=== PATIENT | female | born 1935 | race Caucasian/White ===

== ENCOUNTER 2023-12-25 15:05 | Observation (INO) | payer OTHER ==
--- OUTSIDE RECORDS SUMMARY | 2023-12-25 15:07 | XMS REPORT | Continuity of Care Document ---
Author Name Unknown Address [address] [facility] [address] [place] [address] [facility] Address [address] [facility] [place] [address] [place] [address] Care Team Providers Care Accountancy Professor Name Role Phone Pcp, Patient Does Not Have A Primary Care Physic brandon Nurse, Adc Pob Immunization Attending Clinician Unavailable Jerman Weaver DO Attending Clinician [phone] Social History Social Habit Start Date Stop Date Quantity Comments Source Sex Assigned At 1935 00:00:00 1935 00:00:00 [facility] Procedures Procedure Date / Time Performed Performing Clinicia n Source SARS-COV-2 COVID-19 VACCINE,0.3ML,IM (PFIZER) 2021-03-12 13:59:49 Doctor Unassigned, [place] [facility] Plan of Care Planned Activity Planned Date Details Comments Source Future Scheduled Test 2021-07-07 00:00:00 INFLUENZA VACCINE (Season Ended) [code = INFLUENZA VACCINE (Season Ended)] [facility] Future Scheduled Test 1999 00:00:00 Medicare Annual Wellness Visit (procedure) [code = 033905597033340] [facility] Future Scheduled Test 1999 00:00:00 Screening for osteoporosis (procedure) [code = 042106833] [facility] Future Scheduled Test 1999 00:00:00 PNEUMOCOCCAL VACCINES 65+ (1 of 1 - PPSV23) [code = PNEUMOCOCCAL VACCINES 65+ (1 of 1 - PPSV23)] [facility] Future Scheduled Test 1984 00:00:00 Zoster Recombinant Vaccine (SHINGRIX) (1 of 2) [code = Zoster Recombinant Vaccine (SHINGRIX) (1 of 2)] [facility] Future Scheduled Test 1953 00:00:00 DTaP,Tdap,and Td Vaccines (1 - Tdap) [code = DTaP,Tdap,and Td Vaccines (1 - Tdap)] [facility] Future Scheduled Test 1950 00:00:00 SARS-CoV-2 (COVID-19) Vaccine (1) [code = SARS-CoV-2 (COVID-19) Vaccine (1)] [facility] Future Scheduled Test 1946 00:00:00 Depression screening (procedure) [code = 649863815] [facility]
--- NOTE | 2023-12-25 16:13 | ER ---
Nurse's Notes [facility] Name: Milady Fournier Age: 88 yrs Sex: Female : 1935 Arrival Date: 12/25/2023 Time: 15:05 Bed 8 Private MD: Heriberto Nguyen V Diagnosis: Repeated falls;Fall on same level, unspecified;Pain in right hip-INTRACTABLE;Low back pain-INTRACTABLE;Other injury of muscle, fascia and tendon of lower back Presentation: 12/25 15:11 Chief complaint: Direct admit per Dr Nguyen. ph 15:11 Method Of Arrival: Ambulatory ph 15:36 Coronavirus screen: Vaccine status: Patient reports receiving the 2nd dose of the covid ph vaccine. Ebola Screen: No symptoms or risks identified at this time. Initial Sepsis Screen: Does the patient meet any 2 criteria? No. Patient's initial sepsis screen is negative. Does the patient have a suspected source of infection? No. Patient's initial sepsis screen is negative. Risk Assessment: Do you want to hurt yourself or someone else? Patient reports no desire to harm self or others. Onset of symptoms was December 25, 2023. 15:36 Acuity: CHUCK 3 ph Triage Assessment: 15:53 General: Appears in no apparent distress. Behavior is appropriate for age. General: bp SENT BY DR NGUYEN FOR MRI AFTER REPEATED FALLS OVER LAST MONTH. Pain: Complains of pain in left hip. Historical: - Allergies: 15:14 No Known Allergies; ph - Immunization history:: Adult Immunizations up to date. - Social history:: Smoking status: Patient denies any tobacco usage or history of. - Family history:: not pertinent. Screenin:55 [facility] ED Fall Risk Assessment (Adult) History of falling in the last 3 months, bp including since admission Yes- fall prone (multiple falls) (3 pts) Confusion or Disorientation No (0 pts) Intoxicated or Sedated No (0 pts) Impaired Gait Yes (1 pt) Mobility Assist Device Used Yes (1 pt) Altered Elimination No (0 pt) Score/Fall Risk Level 3 or more points = High Risk Oriented to surroundings. Abuse screen: Denies threats or abuse. Denies injuries from another. Nutritional screening: No deficits noted. Tuberculosis screening: No symptoms or risk factors identified. Assessment: 15:55 General: SEE TRIAGE NOTE. bp 17:41 Reassessment: SEE [facility] FOR [facility]IENT CARE. db Vital Signs: 15:14 BP 189 / 89; Pulse 89; Resp 18; Temp 97.6; Pulse Ox 100% ; Weight 55.79 kg; Height 5 ph ft. 4 in. ; 15:14 Body Mass Index 21.11 (55.79 kg, 162.56 cm) ph ED Course: 15:08 Patient arrived in ED. rg4 15:08 Heriberto Nguyen MD is Private Physician. rg4 15:13 Arm band placed on right wrist. ph 15:34 Eleazar Hicks MD is Attending Physician. david 15:36 Triage completed. ph 15:51 Tho Gaming, RN is Primary Nurse. bp 15:55 Patient has correct armband on for positive identification. bp 16:11 Heriberto Nguyen MD is Hospitalizing Provider. david 17:15 Inserted saline lock: 22 gauge in right antecubital area, using aseptic technique. db Blood collected. 21:23 Provided Education on: need for admit. [facility] 21:23 No provider procedures requiring assistance completed. Patient admitted, IV remains in [facility] place. Administered Medications: No medications were administered Medication: 21:23 VIS not applicable for this client. [facility] Outcome: 16:12 Decision to Hospitalize by Provider. [facility] 21:23 Admitted to Tele accompanied by [facility], via wheelchair, room 401, jw 21:23 Condition: stable 21:23 Instructed on the need for admit, Demonstrated understanding of instructions, 21:45 Patient left the ED. [facility] Signatures: Eleazar Hicks MD MD cha Hall, Patricia, RN RN Mine Gan rg4 Tho Gaming, Sandra Viveros RN, RN RN [facility] Avril Collins RN RN db
--- NOTE | 2023-12-25 16:14 | EDPHYS ---
Physician Documentation [facility] Name: Milady Fournier Age: 88 yrs Sex: Female : 1935 Arrival Date: 12/25/2023 Time: 15:05 Bed 8 Private MD: Heriberto Nguyen V ED Physician Eleazar Hicks HPI: 12/25 16:00 This 88 yrs old Female presents to ER via Ambulatory with complaints of david Direct Admit / Private MD. 16:00 The patient or guardian reports decreased range of motion, an injury, pain, swelling. david that occurred at home, sustained from a fall, There is no obvious deformity, The patient is able to ambulate with assistance. The patient is able to bear their full body weight. There is no radiation of the patient's discomfort. The complaints affect the right leg. Onset: The symptoms/episode began/occurred 30 day(s) ago. Modifying factors: The symptoms are alleviated by remaining still, the symptoms are aggravated by any movement, external rotation, weight bearing. The patient presents with pain that is acute, and decreased range of motion. Historical: - Allergies: 15:14 No Known Allergies; ph - Immunization history:: Adult Immunizations up to date. - Social history:: Smoking status: Patient denies any tobacco usage or history of. - Family history:: not pertinent. ROS: 16:00 Constitutional: Negative for fever, chills, and weight loss, Eyes: Negative for injury, david pain, redness, and discharge, ENT: Negative for injury, pain, and discharge, Neck: Negative for injury, pain, and swelling, Cardiovascular: Negative for chest pain, palpitations, and edema, Respiratory: Negative for shortness of breath, cough, wheezing, and pleuritic chest pain, Abdomen/GI: Negative for abdominal pain, nausea, vomiting, diarrhea, and constipation, : Negative for injury, bleeding, discharge, and swelling, Skin: Negative for injury, rash, and discoloration, Neuro: Negative for headache, weakness, numbness, tingling, and seizure, Psych: Negative for depression, anxiety, suicide ideation, homicidal ideation, and hallucinations, Allergy/Immunology: Negative for hives, rash, and allergies, Endocrine: Negative for neck swelling, polydipsia, polyuria, polyphagia, and marked weight changes, Hematologic/Lymphatic: Negative for swollen nodes, abnormal bleeding, and unusual bruising, 16:00 Back: Positive for injury or acute deformity, decreased range of motion, of the right low back, 16:00 MS/extremity: Positive for injury or acute deformity, contusion, decreased range of motion, pain, of the right hip and right upper thigh, Exam: 16:06 Constitutional: This is a well developed, well nourished patient who is awake, alert, david and in no acute distress. Head/Face: Normocephalic, atraumatic. Eyes: Pupils equal round and reactive to light, extra-ocular motions intact. Lids and lashes normal. Conjunctiva and sclera are non-icteric and not injected. Cornea within normal limits. Periorbital areas with no swelling, redness, or edema. ENT: Nares patent. No nasal discharge, no septal abnormalities noted. Tympanic membranes are normal and external auditory canals are clear. Oropharynx with no redness, swelling, or masses, exudates, or evidence of obstruction, uvula midline. Mucous membranes moist. Neck: Trachea midline, no thyromegaly or masses palpated, and no cervical lymphadenopathy. Supple, full range of motion without nuchal rigidity, or vertebral point tenderness. No Meningismus. Chest/axilla: Normal chest wall appearance and motion. Nontender with no deformity. No lesions are appreciated. Cardiovascular: Regular rate and rhythm with a normal S1 and S2. No gallops, murmurs, or rubs. Normal PMI, no JVD. No pulse deficits. Respiratory: Lungs have equal breath sounds bilaterally, clear to auscultation and percussion. No rales, rhonchi or wheezes noted. No increased work of breathing, no retractions or nasal flaring. Abdomen/GI: Soft, non-tender, with normal bowel sounds. No distension or tympany. No guarding or rebound. No evidence of tenderness throughout. Female : Normal external genitalia. Skin: Warm, dry with normal turgor. Normal color with no rashes, no lesions, and no evidence of cellulitis. Neuro: Awake and alert, GCS 15, oriented to person, place, time, and situation. Cranial nerves II-XII grossly intact. Motor strength 5/5 in all extremities. Sensory grossly intact. Cerebellar exam normal. Normal gait. Psych: Awake, alert, with orientation to person, place and time. Behavior, mood, and affect are within normal limits. 16:06 Back: pain, that is moderate, of the lumbar area and right low back, ROM is painful, with all movement, normal spinal alignment noted, CVA tenderness, is absent, vertebral tenderness, is appreciated at L2, L3, L4, L5 and sacrum, muscle spasm, is appreciated in the left low back, left mid back, right mid back and right low back, 16:06 Musculoskeletal/extremity: Extremities: grossly normal except: contusion, decreased ROM, ecchymosis, pain, swelling, ROM: limited active range of motion, in the right hip and right upper thigh, limited passive range of motion, Circulation is intact in all extremities. Sensation intact. Compartment Syndrome exam of affected extremity: is normal. Weight bearing: can bear weight with assistance only, uses walker, DVT Exam: negative Homans' sign noted on exam, no appreciated bluish discoloration, no erythema, no increased warmth, pain, swelling, tenderness, 16:06 Neuro: Orientation: is normal, appropriate for stated age, no acute changes, Mentation: is normal, appropriate for stated age, no acute changes, Memory: is normal, appropriate for stated age, no acute changes, Cranial nerves: grossly normal, Sensation: is normal, no obvious gross deficits, appropriate no acute changes, Gait: not tested. seizure activity, is not displayed by the patient, Vital Signs: 15:14 BP 189 / 89; Pulse 89; Resp 18; Temp 97.6; Pulse Ox 100% ; Weight 55.79 kg; Height 5 ph ft. 4 in. ; 15:14 Body Mass Index 21.11 (55.79 kg, 162.56 cm) ph MDM: 15:34 Patient medically screened. david 16:08 Differential diagnosis: hip fracture, intertrochanteric fracture, femoral neck david fracture, femoral shaft fracture, bursitis, arthritis, strain. Data reviewed: vital signs, nurses notes. Consideration of Admission/Observation Patient was admitted/placed on observation. Escalation of care including admission/observation considered. I considered the following discharge prescriptions or medication management in the emergency department Medications were administered in the Emergency Department. See MAR. Test considered but Not performed: EKG: NO EKG. Historians other than the Patient: PT WELL INFORMED. Care significantly affected by the following chronic conditions: Hypertension. Counseling: I had a detailed discussion with the patient and/or guardian regarding the historical points, exam findings, and any diagnostic results supporting the discharge/admit diagnosis, the need for further work-up and treatment in the hospital. 12/25 18:05 Order name: Basic Metabolic Panel EDMS 12/25 18:05 Order name: Liver (Hepatic) Function EDMS 12/25 18:05 Order name: Phosphorus EDMS 12/25 18:05 Order name: Magnesium EDMS 12/25 18:05 Order name: Thyroid Stimulating Hormone EDMS 12/25 18:05 Order name: Vitamin B12 Level EDMS 12/25 18:08 Order name: CBC with Automated Diff EDMS 12/25 18:19 Order name: Vitamin D, 25 (OH), TOTAL EDMS Administered Medications: No medications were administered Disposition Summary: 12/25/23 16:12 Hospitalization Ordered Notes: Hospitalization Status: Observation david Provider: Heriberto Nguyen cha Condition: Fair david Problem: new david Symptoms: are unchanged david Bed/Room Type: Standard david Location: Telemetry/MedSurg (observation)(12/25/23 21:08) as6 Room Assignment: 401(12/25/23 21:08) as6 Diagnosis - Repeated falls david - Fall on same level, unspecified david - Pain in right hip - INTRACTABLE david - Low back pain - INTRACTABLE david - Other injury of muscle, fascia and tendon of lower back david Forms: - Medication Reconciliation Form david - SBAR form david - Leadership Thank You Letter david Signatures: Sharmaine Beal Corey, MD MD cha Hall, Patricia RN RN Tho Gaming RN RN bp Slawson, Ashby, RN RN as6 Corrections: (The following items were deleted from the chart) 17:37 16:12 Telemetry/MedSurg (observation) david bd 17:37 16:12 david bd 21:08 17:37 [facility] ER HOLD bd as6 21:08 17:37 ERHOLD- bd as6 21:08 21:08 as6 as6
[2023-12-25] MEDS ORDERED: ACETAMINOPHEN 325 MG TABLET ONE (16:58)
[2023-12-25] MEDS: ACETAMINOPHEN 325 MG TABLET PO PRN (17:00)
[2023-12-25] MEDS: NA CHLORIDE 0.9% 1,000 ML IV SCH (17:00)
[2023-12-25] MEDS ORDERED: LOPERAMIDE HCL 2 MG CAPSULE PO PRN (17:02)
[2023-12-25] MEDS ORDERED: POLYETHYL GLY 3350 17 GM/DOSE PO PRN (17:02)
[2023-12-25] MEDS ORDERED: DIPHENHYDRAMINE 25 MG TAB/CAP PO PRN (17:02)
[2023-12-25] MEDS ORDERED: ONDANSETRON 4 MG/2 ML VIAL IV PRN (17:04)
[2023-12-25] MEDS: HYDROMORPHONE HCL 1 MG/ML INJ IV PRN (17:30)
[2023-12-25 17:36] LABS: Absolute Lymphocytes (CBC) 1.5 K/uL (0.7-4.9); Hematocrit 30.7 % (36.0-45.0); Lymphocytes % 17.6 % (15.3-44.8); MCV 91.5 fL (80-100); MPV 6.4 fL (7.6-11.3); Platelets 315 thou/uL (152-406); RBC Red Blood Cell Count 3.36 M/uL (3.86-4.86)
[2023-12-25 17:50] VITALS: BMI 21.1
[2023-12-25] MEDS: ENOXAPARIN 40 MG/0.4 ML SQ SCH (18:00)
[2023-12-25 18:05] LABS: Albumin 3.7 g/dL (3.4-5.0); Bilirubin Direct 0.3 mg/dL (0-0.2); Bilirubin Indirect, Calculated 0.4 mg/dL (0.2-0.8); Bilirubin Total 0.7 mg/dL (0.2-1.0); Magnesium 1.7 mg/dL (1.6-2.4); Phosphorus 2.9 mg/dL (2.5-4.9); Potassium 3.8 mEq/L (3.5-5.1); Protein, Total 7.6 g/dL (6.4-8.2); Thyroid Stimulating Hormone 2.59 uIU/mL (0.358-3.740)
[2023-12-25] MEDS ORDERED: PNEUMOCOCCAL VACCINE 0.5 ML IMVAC ONE (21:00)
[2023-12-25] MEDS ORDERED: INFLUENZA VACCINE (for 6+ mo) 0.5 ML DOSE IMVAC ONE (21:00)
--- NOTE | 2023-12-25 22:07 | RAD REPORT ---
EXAM DESCRIPTION: RAD - Chest Pa And Lat (2 Views) - 12/25/2023 5:39 pm CLINICAL HISTORY: back pain COMPARISON: No comparisons TECHNIQUE: PA and lateral views of the chest were obtained. FINDINGS: The lungs are clear. Heart size is normal and central vasculature is within normal limits. No pleural effusion or pneumothorax seen. No acute bony finding noted. IMPRESSION: No acute cardiopulmonary process.
[2023-12-25] MEDS: LOSARTAN POTASSIUM 50 MG TABLET PO SCH (22:19)
[2023-12-26 06:56] LABS: Absolute Lymphocytes (CBC) 1.2 K/uL (0.7-4.9); Lymphocytes % 27.9 % (15.3-44.8); MCV 92.6 fL (80-100); MPV 6.5 fL (7.6-11.3); Platelets 284 thou/uL (152-406); RBC Red Blood Cell Count 3.03 M/uL (3.86-4.86)
[2023-12-26 07:16] LABS: Magnesium 1.7 mg/dL (1.6-2.4); Potassium 4.1 mEq/L (3.5-5.1)
[2023-12-26] MEDS: MAGNESIUM SULFATE 1 gm IVPB 1 GM/100 ML BAG IV ONE (08:27)
[2023-12-26 10:24] VITALS: O2SAT 99
[2023-12-26] MEDS: FAMOTIDINE 20 MG TAB PO SCH (11:33)
--- NOTE | 2023-12-26 11:33 | RAD REPORT ---
EXAM DESCRIPTION: MRI - Lumbar Spine Wo Con- 12/26/2023 11:15 am CLINICAL HISTORY: back pain COMPARISON: No comparisons FINDINGS: Vertebral body heights are within normal limits. Diffuse disc desiccation. Mild edema noted right sacral ala. The conus medullaris terminates at a normal level. No thickening of the cauda equina or clumping of n erve roots seen. L1-2 level: Mild posterior disc bulge is present asymmetric to the right. Mild facet and ligamentum f lavum hypertrophy is seen. L2-3 level: Degenerative disc disease with small endplate osteophytes and mild to moderate posterior disc bulge asymmetric to the right. Moderate facet and ligamentum flavum hypertrophy is seen. Mild na rrowing of both lateral recesses. L3-4 level: Broad-based posterior disc bulge with small endplate osteophyte present. Findings are asy mmetric to the left foraminal region. Mild facet and ligament flavum hypertrophy. Left lateral recess is mildly attenuated. No significant exit foraminal stenosis. L4-5 level: Posterior disc bulge is present with [id number] facet and ligamentum flavum hypertr ophy. Mild narrowing of the left exit foramen. L5-S1 level: No significant findings. 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
--- NOTE | 2023-12-26 14:01 | RAD REPORT ---
EXAM DESCRIPTION: MRI - Hip Right Wo Cont - 12/26/2023 10:52 am CLINICAL HISTORY: hip injury Multiple falls, pain COMPARISON: No comparisons FINDINGS: Abnormal marrow signal is seen in the right sacral ala suspicious for insufficiency fracture. A small amount of mid edema is also present in the left sacral ala which may indicate additional insufficiency fracture, but less severe. There is diminished marrow signal seen in the inferior pubic ramus on the right extending to the pubic symphysis as well as the superior pubic ramus on the right near the junction with the acetabulum. There is associated cortical offset of the inferior pubic ramus, on the right pubic symphysis and a small portion of the right superior pubic ramus near the junction with the anterior acetabulum. This is compatible with fracture. There is moderate muscle edema seen in the obturator musculature suggesting significant muscle strain/partial tearing. Small amount of marrow edema is seen in the left superior pubic ramus near the pubic symphysis as well, which may be reactive. IMPRESSION: Evidence of fracture right inferior pubic ramus, right pubic symphysis and right superior pubic ramus near the junction with the acetabulum. There is associated moderate bone bruising. The right hip appears intact. Significant edema and thickening of the right obturator musculature compatible with moderate muscle strain/partial tearing. Edema in both sacral ala, greater on the right suggests sacral insufficiency fractures.
[2023-12-26 14:41] VITALS: BP 143/65; TEMP 97.8
[2023-12-26] MEDS ORDERED: ATORVASTATIN 20 MG TAB PO SCH (21:00)
[2023-12-27] MEDS ORDERED: FENOFIBRATE 48 MG TAB PO SCH (09:00)
== END 2023-12-26 15:00 | disposition home or self-care (01) ==
LOC: ER 15:05 → ERHOLD 16:11 → INTOOBSV 16:11 → 4TH 21:34
PROVIDERS: ADMIT Internal Medicine; ATTEND Internal Medicine
DX: S39.002A Unspecified injury of muscle, fascia and tendon of lower back, initial encounter (principal); M54.50 Low back pain, unspecified; M54.17 Radiculopathy, lumbosacral region; M25.551 Pain in right hip; D64.9 Anemia, unspecified; E78.5 Hyperlipidemia, unspecified; E78.00 Pure hypercholesterolemia, unspecified; W18.30XA Fall on same level, unspecified, initial encounter; Y93.89 Activity, other specified; Y92.89 Other specified places as the place of occurrence of the external cause; Z91.81 History of falling
CPT/HCPCS: 85025 ×2; 80048 ×2; 36415 ×2; 83735 ×2; 84100; 80076; 84443; 82607; 82306; 71046; 72148; 73721; J3475; J1650; J1170 ×4; J2405; J7030 ×2; G0378

== ENCOUNTER 2024-02-27 16:30 | Inpatient (IN) | payer OTHER ==
--- OUTSIDE RECORDS SUMMARY | 2024-02-27 16:32 | XMS REPORT | Continuity of Care Document ---
Author Name Unknown Address [address] [facility] [address] [place], [place] [id number] [place] [address] [facility] Address [address] [facility]. [address] [place] [address] Care Team Providers Care Travel Journalist Name Role Phone Pcp, Patient Does Not Have A Primary Care Physic brandon Nurse, Adc Pob Immunization Attending Clinician Unavailable Jerman Weaver DO Attending Clinician Social History Social Habit Start Date Stop Date Quantity Comments Source Sex Assigned At [birth year]00 [facility] Procedures Procedure Date / Time Performed Performing Clinicia n Source SARS-COV-2 COVID-19 VACCINE,0.3ML,IM (PFIZER) 2021-03-12 13:59:49 Doctor Unassigned, [place] [facility] Plan of Care Planned Activity Planned Date Details Comments Source Future Scheduled Test 2021-07-07 00:00:00 INFLUENZA VACCINE (Season Ended) [code = INFLUENZA VACCINE (Season Ended)] [facility] Future Scheduled Test 1999 00:00:00 Medicare Annual Wellness Visit (procedure) [code = 515612768117565] [facility] Future Scheduled Test 1999 00:00:00 Screening for osteoporosis (procedure) [code = [id number]] [facility] Future Scheduled Test 1999 00:00:00 PNEUMOCOCCAL VACCINES 65+ (1 of 1 - PPSV23) [code = PNEUMOCOCCAL VACCINES 65+ (1 of 1 - PPSV23)] [facility] Future Scheduled Test 1984 00:00:00 Zoster Recombinant Vaccine (SHINGRIX) (1 of 2) [code = Zoster Recombinant Vaccine (SHINGRIX) (1 of 2)] [facility] Future Scheduled Test 1953 00:00:00 DTaP,Tdap,and Td Vaccines (1 - Tdap) [code = DTaP,Tdap,and Td Vaccines (1 - Tdap)] [facility] Future Scheduled Test 1950 00:00:00 SARS-CoV-2 (COVID-19) Vaccine (1) [code = SARS-CoV-2 (COVID-19) Vaccine (1)] [facility] Future Scheduled Test 1946 00:00:00 Depression screening (procedure) [code = [id number]] [facility]
[2024-02-27] MEDS: PNEUMOCOCCAL VACCINE 0.5 ML IMVAC ONE (17:27)
[2024-02-27] MEDS: INFLUENZA VACCINE (for 6+ mo) 0.5 ML DOSE IMVAC ONE (17:27)
[2024-02-27] MEDS: HYDROMORPHONE HCL 1 MG/ML INJ IV PRN (17:32)
[2024-02-27] MEDS: NACHLORIDE 0.45% 1,000 ML IV SCH (17:34)
[2024-02-27] MEDS: PIPER TAZO 3.375 GM in NA CHLORIDE 0.9% 100 ML IV SCH (17:40)
[2024-02-27] MEDS: ENOXAPARIN 40 MG/0.4 ML SQ SCH (17:41)
[2024-02-27 17:54] VITALS: BMI 20.5
[2024-02-27] MEDS ORDERED: ONDANSETRON 4 MG (ODT) TAB PO PRN (18:00)
[2024-02-27] MEDS ORDERED: LOPERAMIDE HCL 2 MG CAPSULE PO PRN (18:00)
[2024-02-27] MEDS ORDERED: POLYETHYL GLY 3350 17 GM/DOSE PO PRN (18:00)
[2024-02-27] MEDS ORDERED: ACETAMINOPHEN 325 MG TABLET PO PRN (18:00)
[2024-02-27] MEDS ORDERED: ONDANSETRON 4 MG/2 ML VIAL IV PRN (18:00)
[2024-02-27 19:48] LABS: Albumin/Globulin Ratio 1.1 (1.1-1.8); Anion Gap 10.9 mEq/L (5.0-15.0); Bilirubin Direct 0.2 mg/dL (0-0.2); Bilirubin Indirect, Calculated 0.5 mg/dL (0.2-0.8); Bilirubin Total 0.7 mg/dL (0.2-1.0); Globulin 3.6 g/dL (2.3-3.5); Magnesium 2.1 mg/dL (1.6-2.4); Phosphorus 2.9 mg/dL (2.5-4.9); Potassium 4.9 mEq/L (3.5-5.1); Protein, Total 7.6 g/dL (6.4-8.2)
[2024-02-27 19:49] LABS: Thyroid Stimulating Hormone 7.5 uIU/mL (0.358-3.740)
[2024-02-27 19:50] LABS: Absolute Lymphocytes (CBC) 2.2 K/uL (0.7-4.9); Absolute Monocytes 0.9 K/uL (0.1-1.3); Absolute Neutrophil 4.2 K/uL (1.8-8.0); Basophils % 0.6 % (0-1.3); Eosinophils % 0.6 % (0-4.4); Hematocrit 32.3 % (36.0-45.0); Hemoglobin 11.1 g/dL (12.0-15.0); Lymphocytes % 29.4 % (15.3-44.8); MCH 31.8 pg (27.0-35.0); MCHC 34.3 g/dL (32.0-36.0); MCV 92.6 fL (80-100); MPV 6.7 fL (7.6-11.3); Monocytes % 12.1 % (3.3-12.3); Neutrophils % 57.3 % (41.7-73.7); Platelets 276 thou/uL (152-406); RBC Red Blood Cell Count 3.49 M/uL (3.86-4.86); Red Cell Distribution Width 13.8 % (12.1-15.2)
--- NOTE | 2024-02-27 21:49 | RAD REPORT ---
EXAM DESCRIPTION: Santiago Thompson (2 Views)02/27/2024 9:36 pm CLINICAL HISTORY: Abdominal pain COMPARISON: December 2023 FINDINGS: The lungs appear clear of acute infiltrate. The heart is normal size IMPRESSION: No acute abnormalities displayed
--- NOTE | 2024-02-27 22:02 | RAD REPORT ---
EXAM DESCRIPTION: CT - Abdomen Pelvis W Contrast - 02/27/2024 9:42 pm CLINICAL HISTORY: Abdominal pain COMPARISON: none. TECHNIQUE: Computed axial tomography of the abdomen pelvis was obtained. 100 cc Isovue-300 was admin istered intravenously. Oral contrast was not requested which limits evaluation of bowel and appendix All CT scans are performed using dose optimization technique as appropriate and may include automated exposure control or mA/KV adjustment according to patient size. FINDINGS: Mild prominence of the biliary tree probably physiologic in this elderly status post mariann cystectomy. The spleen, pancreas, adrenals and right kidney unremarkable. Small left renal cyst Hysterectomy. No adnexal mass. No evidence diverticulitis. Fluid within nondilated bowel Subacute fractures right acetabulum, right inferior pubic ramus and medial aspect of right pubic bone near the pubic symphysis. These have the appearance of insufficiency fractures. Additional sacral in sufficiency fractures. IMPRESSION: Fluid within nondilated bowel may indicate enteritis
[2024-02-28 05:04] LABS: Specific Gravity > 1.030 (1.005-1.030); Urine Bilirubin NEGATIVE (Negative); Urine Blood Negative (Negative); Urine Clarity Clear (Clear); Urine Color Colorless (Yellow); Urine Glucose NEGATIVE (Negative); Urine Ketones NEGATIVE (Negative); Urine Microscopic Reflex YN NO UMIC; Urine Nitrite NEGATIVE (Negative); Urine Protein NEGATIVE (Negative); Urine Urobilinogen Normal (Normal)
[2024-02-28 06:29] LABS: Absolute Eosinophils 0.1 K/uL (0-0.5); Absolute Lymphocytes (CBC) 1.9 K/uL (0.7-4.9); Absolute Monocytes 0.7 K/uL (0.1-1.3); Absolute Neutrophil 3.3 K/uL (1.8-8.0); Basophils % 0.6 % (0-1.3); Hematocrit 29.6 % (36.0-45.0); Hemoglobin 9.9 g/dL (12.0-15.0); Lymphocytes % 31.4 % (15.3-44.8); MCH 31.2 pg (27.0-35.0); MCHC 33.6 g/dL (32.0-36.0); MCV 92.8 fL (80-100); MPV 6.6 fL (7.6-11.3); Monocytes % 11.9 % (3.3-12.3); Neutrophils % 55.1 % (41.7-73.7); Platelets 252 thou/uL (152-406); RBC Red Blood Cell Count 3.19 M/uL (3.86-4.86); Red Cell Distribution Width 13.8 % (12.1-15.2)
[2024-02-28 06:44] LABS: Anion Gap 7.7 mEq/L (5.0-15.0); Potassium 4.7 mEq/L (3.5-5.1)
[2024-02-28] MEDS: THYROID 30 MG TAB PO SCH (09:39)
[2024-02-28] MEDS: FAMOTIDINE 20 MG TAB PO SCH (09:39)
[2024-02-28] MEDS: ATORVASTATIN 20 MG TAB PO SCH (09:40)
[2024-02-28] MEDS: FENOFIBRATE 48 MG TAB PO SCH (09:40)
[2024-02-28 15:47] LABS: PT Prothrombin Time 11.5 SECONDS (9.5-12.5)
[2024-02-28] MEDS: DIPHENHYDRAMINE 25 MG TAB/CAP PO PRN (19:32)
--- NOTE | 2024-02-28 22:17 | P.PN ---
Subjective Date of Service: 02/28/24 Chief Complaint: SHE IS A LOT BETTER. STILL WEAK Subjective: Improving SHE SAYS SHE HAS NEVER HAD SUCH BAD PAIN BEFORE. Review of Systems 10-point ROS is otherwise unremarkable General: Weakness Physical Examination - Vital Signs Temperature: 98.2 F Blood Pressure: 171/75 Pulse: 70 Respirations: 18 Pulse Ox (%): 94 - Physical Exam General: Mild distress HEENT: Atraumatic, PERRLA, EOMI Neck: Supple, JVD not distended Respiratory: Clear to auscultation bilaterally, Normal air movement Cardiovascular: Regular rate/rhythm, Normal S1 S2 Gastrointestinal: Normal bowel sounds, No tenderness Musculoskeletal: No tenderness Integumentary: No rashes Neurological: Normal speech, Normal tone, Normal affect Lymphatics: No axilla or inguinal lymphadenopathy - Studies Laboratory Data (last 24 hrs) 02/28/24 02/28/24 02/27/24 06:06 06:06 18:55 WBC 6.00 Hgb 9.9 L D Hct 29.6 L Plt Count 252 PT 11.5 INR 1.00 APTT 25.0 Sodium 126 L Potassium 4.7 BUN 9 Creatinine 0.73 Glucose 100 Magnesium 2.0 Microbiology Data (last 24 hrs): 02/27/24 19:00 Blood - Blood Anaerobic Blood Culture - Final Medications List Reviewed: Yes Assessment And Plan - Current Problems (Diagnosis) (1) Acute diverticulitis Current Visit: Yes Status: Acute Plan: IV ZOSYN WILL MOSTLY GO HOME IN AM STABLE WITH GOOD PAIN CONTROL. CT SHOWS ENTERITIS. THERE IS NO SIGN OF GASTROENERITIS.
[2024-02-29 06:57] LABS: Absolute Eosinophils 0.2 K/uL (0-0.5); Absolute Lymphocytes (CBC) 2.2 K/uL (0.7-4.9); Absolute Monocytes 0.8 K/uL (0.1-1.3); Absolute Neutrophil 3.2 K/uL (1.8-8.0); Basophils % 0.6 % (0-1.3); Eosinophils % 2.6 % (0-4.4); Hematocrit 30.4 % (36.0-45.0); Hemoglobin 10.7 g/dL (12.0-15.0); Lymphocytes % 34.7 % (15.3-44.8); MCH 32.1 pg (27.0-35.0); MCV 91.6 fL (80-100); MPV 6.4 fL (7.6-11.3); Monocytes % 11.8 % (3.3-12.3); Neutrophils % 50.3 % (41.7-73.7); Platelets 275 thou/uL (152-406); RBC Red Blood Cell Count 3.32 M/uL (3.86-4.86); Red Cell Distribution Width 13.7 % (12.1-15.2)
[2024-02-29] MEDS: NACHLORIDE 0.45% 1,000 ML IV SCH (08:08)
--- NOTE | 2024-02-29 08:10 | P.PN ---
Subjective Date of Service: 02/29/24 Chief Complaint: BACK IN PAIN TODAY. LLQ Subjective: Worsening SHE SAYS SHE HAS NEVER HAD SUCH BAD PAIN BEFORE. SHE WAS FEELING GREAT YESTERDAY BUT THE PAIN IS BACK TODAY AND NOT RESPONDING TO NARCOTICS. Review of Systems 10-point ROS is otherwise unremarkable General: Weakness Physical Examination - Vital Signs Temperature: 97.3 F Blood Pressure: 170/82 Pulse: 68 Respirations: 17 Pulse Ox (%): 97 - Physical Exam General: Moderate distress HEENT: Atraumatic, PERRLA, EOMI Neck: Supple, JVD not distended Respiratory: Clear to auscultation bilaterally, Normal air movement Cardiovascular: Regular rate/rhythm, Normal S1 S2 Gastrointestinal: Normal bowel sounds, Tenderness (LLQ NO REBOUND) Musculoskeletal: No tenderness Integumentary: No rashes Neurological: Normal speech, Normal tone, Normal affect Lymphatics: No axilla or inguinal lymphadenopathy - Studies Laboratory Data (last 24 hrs) 02/29/24 02/27/24 06:26 18:55 WBC 6.40 Hgb 10.7 L D Hct 30.4 L Plt Count 275 PT 11.5 INR 1.00 APTT 25.0 Microbiology Data (last 24 hrs): 02/27/24 19:00 Blood - Blood Anaerobic Blood Culture - Final Medications List Reviewed: Yes Assessment And Plan - Current Problems (Diagnosis) (1) Acute diverticulitis Current Visit: Yes Status: Acute Plan: IV ZOSYN WILL MOSTLY GO HOME IN AM STABLE WITH GOOD PAIN CONTROL. CT SHOWS ENTERITIS. THERE IS NO SIGN OF GASTROENERITIS. CT WAS NOT MUCH IMPRESSIVE CHECK CPK RULE OUT ISCHEMIA. CHECK C DIFF COLITIS TODAY SHE HAS DIARRHEA. (2) HTN (hypertension) Current Visit: Yes Status: Acute Plan: START LOSARTAN. THIS IS NOT USUAL FOR HER BUT SHE IS ANXIOUS (3) Hyponatremia Current Visit: Yes Status: Acute Plan: RAISE IV FLUIDS EUVOLEMIC WILL DO MORE LOWE IF SHE GETS WORSE.
[2024-02-29 08:52] LABS: Anion Gap 9.1 mEq/L (5.0-15.0); Potassium 5.1 mEq/L (3.5-5.1)
[2024-02-29] MEDS: LOSARTAN POTASSIUM 50 MG TABLET PO SCH (09:27)
--- NOTE | 2024-02-29 11:05 | CON ---
Date of Consultation: 02/29/2024 Reason: Abdominal pain. History Of Present Illness: The patient is an 88-year-old female, who was admitted with approximatel y 4 to 5 days' history of lower abdominal pain as well as left lower quadrant and radiating to the ba ck. She denies any nausea, vomiting. She has had some diarrhea 3 to 4 times a day for the last 3 or 4 days. She has had multiple episodes of diverticulitis in the past, treated conservatively with an tibiotics and have improved every time. She had a CAT scan done and I was asked to evaluate. She is awake, alert, no acute distress. She denies any sore throat, runny nose, cough, headaches, or dizzi ness. No chest pain. No fever or chills. Review of Systems: Otherwise unremarkable. Past Medical History: Dyslipidemia, subclavian steal syndrome, hyperlipidemia, cervical radiculopath y, dysphagia, anemia, history of pelvic fracture and sacral fracture. Past Surgical History: Includes hysterectomy and cholecystectomy. Allergies: NO ALLERGIES. Social History: The patient does not smoke or drink alcohol. Family History: Noncontributory. Physical Examination: Vital Signs: Stable. She is afebrile. General: She is awake, alert, oriented x3. Head and Neck: No masses. Chest: Clear. Heart: S1, S2. Abdomen: Soft, nondistended, nontender. No peritonitis. Positive bowel sounds. Extremities: Neurovascularly intact. Neuro: Nonfocal. Imaging Data: CT of the abdomen and pelvis reviewed, shows evidence of gastroenteritis. No obstruct ion. No evidence of ischemic bowel. No evidence of diverticulitis at this time. Laboratory Data: Reviewed. White count is 6.4, there is no left shift. INR is 1.0. Chemistry revi ewed. She has hyponatremia, otherwise unremarkable. Assessment: An 88-year-old female with multiple medical problems with likely gastroenteritis. Recommendations: We will go ahead and check for C. diff as she has been treated with antibiotics and she has diarrhea. Otherwise, hydration and supportive care should suffice. There is no need for an y acute surgical intervention. Plan of care discussed with Dr. Nguyen. /MODL Voice ID: [id number] Report ID: [id number]
[2024-02-29 12:06] LABS: C.diff Antigen/Toxin Ag neg : Tox neg (NEG : NEG); CDIFF INTERNAL NEG CONTROL White Background (WHITE BKGD); STOOL CONSISTENCY Liquid/Semi-Solid
[2024-02-29] MEDS: METOPROLOL XL 50 MG TAB PO SCH (20:31)
[2024-02-29] MEDS: METRONIDAZOLE 500mg IVPB 500 MG/100 ML BAG IV SCH (23:53)
[2024-02-29] MEDS: HYDROMORPHONE HCL 2 MG/ML inj IV PRN (23:54)
[2024-03-01 06:46] LABS: Absolute Eosinophils 0.2 K/uL (0-0.5); Absolute Lymphocytes (CBC) 1.6 K/uL (0.7-4.9); Absolute Monocytes 0.7 K/uL (0.1-1.3); Absolute Neutrophil 3.2 K/uL (1.8-8.0); Basophils % 0.7 % (0-1.3); Eosinophils % 2.7 % (0-4.4); Hematocrit 29.3 % (36.0-45.0); Hemoglobin 10.1 g/dL (12.0-15.0); Lymphocytes % 27.5 % (15.3-44.8); MCHC 34.5 g/dL (32.0-36.0); MCV 92.8 fL (80-100); MPV 6.7 fL (7.6-11.3); Monocytes % 12.2 % (3.3-12.3); Neutrophils % 56.9 % (41.7-73.7); Nucleated Red Blood Cells % 0.1 % (0-0); Platelets 257 thou/uL (152-406); RBC Red Blood Cell Count 3.16 M/uL (3.86-4.86); Red Cell Distribution Width 13.9 % (12.1-15.2)
--- NOTE | 2024-03-01 14:42 | RAD REPORT ---
EXAM DESCRIPTION: MRI - Lumbar Spine Wo Con - 03/01/2024 1:40 pm CLINICAL HISTORY: Back pain/abdominal pain/radiculopathy COMPARISON: December 2023 TECHNIQUE: Sagittal T1, T2 and STIR weighted sequences were obtained. Axial T1 and T2 sequences were obtained through the lumbar disc levels. FINDINGS: Asymmetric right disc bulge L1-2 results in mild narrowing of right anterior aspect of the frieda sac. Mild ligamentum flavum hypertrophy. Mild narrowing the right neural foramina Disc thinning L2-3 with mild posterior subluxation of L2 on L3. Degenerative signal involves the vert ebral endplates. Disc bulge asymmetric right lateral, osteophytes, ligamentum flavum and facet hypert rophy is present. Lateral recesses are narrowed. [id number] narrowing of the right mild narrowi ng left neural foramina Mild posterior subluxation of L3 on L4 with disc thinning and degenerative signal involving vertebral endplates. Ligamentum flavum and facet hypertrophy. Mild narrowing of the thecal sac. Narrowing late ral recesses. Mild narrowing of the neural foramina. L4-5 disc is thinned. Ligamentum flavum and facet hypertrophy. Osteophytes. Narrowing left lateral re cess. Moderate narrowing left neural foramina. Mild spondylosis L5-S1 No fracture IMPRESSION: Spondylosis of the lumbar spine without significant change from December 2023
--- NOTE | 2024-03-01 14:53 | P.PN ---
Subjective Date of Service: 03/01/24 Chief Complaint: PAIN CONTIUES Subjective: C/O voiced SHE SAYS SHE HAS NEVER HAD SUCH BAD PAIN BEFORE. SHE WAS FEELING GREAT YESTERDAY BUT THE PAIN IS BACK TODAY AND NOT RESPONDING TO NARCOTICS. AFTER 2 MG OF DILAUDID HER PAIN WAS BETTER BUT IT RETURNED IN AM. Review of Systems 10-point ROS is otherwise unremarkable Gastrointestinal: Abdominal Pain Physical Examination - Vital Signs Temperature: 98.3 F Blood Pressure: 159/67 Pulse: 67 Respirations: 17 Pulse Ox (%): 97 - Physical Exam General: Moderate distress HEENT: Atraumatic, PERRLA, EOMI Neck: Supple, JVD not distended Respiratory: Clear to auscultation bilaterally, Normal air movement Cardiovascular: Regular rate/rhythm, Normal S1 S2 Gastrointestinal: Normal bowel sounds, No tenderness, Tenderness (LLQ) Musculoskeletal: No tenderness Integumentary: No rashes Neurological: Normal speech, Normal tone, Normal affect Lymphatics: No axilla or inguinal lymphadenopathy - Studies Laboratory Data (last 24 hrs) 03/01/24 06:06 WBC 5.70 Hgb 10.1 L Hct 29.3 L Plt Count 257 Medications List Reviewed: Yes Assessment And Plan - Current Problems (Diagnosis) (1) Acute diverticulitis Current Visit: Yes Status: Acute Plan: IV ZOSYN WILL MOSTLY GO HOME IN AM STABLE WITH GOOD PAIN CONTROL. CT SHOWS ENTERITIS. THERE IS NO SIGN OF GASTROENERITIS. CT WAS NOT MUCH IMPRESSIVE CHECK CPK RULE OUT ISCHEMIA. CHECK C DIFF COLITIS TODAY SHE HAS DIARRHEA. MRI ALSO NOT IMPRVESSIVE RADICULAR PAIN IS NOT THE REASON. I SEE NO RASH LIKE WE SEE FOR SHINGLES. INTERNAL SHINGLES ARE POSSIBLE. CHANCE OF VASCULAR BLOCKAGE IS REMOTE. SHE IS NOT SMOKER OR DIABETIC. (2) HTN (hypertension) Current Visit: Yes Status: Acute Plan: START LOSARTAN. THIS IS NOT USUAL FOR HER BUT SHE IS ANXIOUS (3) Hyponatremia Current Visit: Yes Status: Acute Plan: RAISE IV FLUIDS EUVOLEMIC WILL DO MORE LOWE IF SHE GETS WORSE.
--- NOTE | 2024-03-01 14:56 | PN ---
Date of Progress Note: 03/01/2024 Subjective: The patient is tolerating diet. No GI symptoms. She is still complaining of left-sided pain going to the back. No nausea or vomiting. Vital signs are stable. Laboratory data reviewed. White count is normal. C diff test was negative. Objective: Vital Signs: Stable, she is afebrile. Abdomen: Soft, nondistended, nontender. Positive bowel sounds. Assessment: Abdominal pain and back pain. Recommendation: Discussed the case with Dr. Nguyen. He has ordered an MRI of the lower spine to see if we can explain her symptomology. She requires IV pain medicine at this time to control her pain. Once the pain is under control and the etiology is elucidated, she probably can be discharged home o n pain medication. There is no need for any acute surgical intervention at this time. ANDREW/JAZMYN Voice ID: [id number] Report ID: [id number]
[2024-03-01] MEDS: dexAMETHasone 4 MG/ML VIAL IV SCH (16:46)
[2024-03-01] MEDS: VALACYCLOVIR 500 MG TAB PO SCH (16:47)
[2024-03-01] MEDS: CIPROFLOXACIN 400mg IV 400 MG/200 ML BAG IV SCH (21:14)
[2024-03-02 09:12] LABS: Absolute Lymphocytes (CBC) 0.7 K/uL (0.7-4.9); Absolute Monocytes 0.2 K/uL (0.1-1.3); Absolute Neutrophil 7.1 K/uL (1.8-8.0); Basophils % 0.5 % (0-1.3); Eosinophils % 0.1 % (0-4.4); Hematocrit 30.4 % (36.0-45.0); Hemoglobin 10.5 g/dL (12.0-15.0); MCH 31.9 pg (27.0-35.0); MCHC 34.7 g/dL (32.0-36.0); MCV 91.8 fL (80-100); MPV 6.9 fL (7.6-11.3); Monocytes % 1.9 % (3.3-12.3); Neutrophils % 88.5 % (41.7-73.7); Platelets 253 thou/uL (152-406); Red Cell Distribution Width 13.6 % (12.1-15.2)
[2024-03-02 10:15] VITALS: O2SAT 97
[2024-03-02 11:26] LABS: Blood Morphology Comment NOT SEEN (NOT SEEN); Platelet Estimate ADEQ; White Blood Cell Scan OK (OK)
[2024-03-02 12:29] VITALS: BP 130/62; TEMP 97.7
[2024-03-02] MEDS ORDERED: LACTOBACILLUS/ACIDOPHILUS TAB PO SCH (14:00)
--- NOTE | 2024-03-02 14:49 | P.DS ---
Admission Date: 02/28/24 Discharge Date: 03/02/24 Disposition: DC HOME/HOME HEALTH CARE Discharge Condition: FAIR Reason for Admission: PAIN CONTIUES - Problems (1) Acute diverticulitis Status: Acute (2) HTN (hypertension) Status: Acute (3) Hyponatremia Status: Acute Brief History of Present Illness: SHE IS LOT BETTER TODAY AFTER IV STEROIDS AND VALTREX. SHE COULD HAVE INTERNAL SHINGLES WHERE IT AFFECTS THE ABDOMINAL NERVOUS SYSTEM BUT THE RASH IS NOT VISIBLE. IN ANY CASE SHE IMPROVED ONLY AFTER ABOVE THERAPY AND NOT WITH ANTIBIOTICS. SHE DID NOT HAVE DIVERTICULITIS BUT HAD SYMPTOMS IN THE SAME REGION. SHE IS STABLE TO GO HOME.. HER CT SHOWED ENTERITIS ON R SIDE BUT NO DIVERTICULITIS AND HER MRI SHOWED ARTHRITIS BUT NO REASON TO GIVE HER PAIN ON L SIDE. Vital Signs/Physical Exam: Temp Pulse Resp BP Pulse Ox 97.7 F 69 16 130/62 97 03/02/24 12:00 03/02/24 12:00 03/02/24 12:00 03/02/24 12:00 03/02/24 12:00 Laboratory Data at Discharge: WBC 8.10 thou/uL (4.3-10.9) 03/02/24 08:58 Hgb 10.5 g/dL (12.0-15.0) L 03/02/24 08:58 Hct 30.4 % (36.0-45.0) L 03/02/24 08:58 Plt Count 253 thou/uL (152-406) 03/02/24 08:58 PT 11.5 SECONDS (9.5-12.5) 02/27/24 18:55 INR 1.00 02/27/24 18:55 APTT 25.0 SECONDS (24.3-36.9) 02/27/24 18:55 Sodium 127 mEq/L (136-145) L 02/29/24 06:26 Potassium 5.1 mEq/L (3.5-5.1) 02/29/24 06:26 BUN 5 mg/dL (7-18) L 02/29/24 06:26 Creatinine 0.75 mg/dL (0.55-1.02) 02/29/24 06:26 Glucose 105 mg/dL (74-106) 02/29/24 06:26 Phosphorus 2.9 mg/dL (2.5-4.9) 02/27/24 18:55 Magnesium 2.0 mg/dL (1.6-2.4) 02/28/24 06:06 Total Bilirubin 0.7 mg/dL (0.2-1.0) 02/27/24 18:55 AST 15 U/L (15-37) 02/27/24 18:55 ALT 20 U/L (13-56) 02/27/24 18:55 Alkaline Phosphatase 85 U/L (45-117) 02/27/24 18:55 Home Medications: Atorvastatin Calcium 1 tab PO DAILY 12/26/23 Famotidine [Pepcid AC] 1 tab PO BIDWM 12/26/23 Fenofibrate [Tricor] 54 mg PO DAILY 12/26/23 Thyroid,Pork [Stripe Marker Thyroid] 15 mg PO DAILY 02/27/24
[2024-03-03 04:40] LABS: 1,25 Dihydroxy Vitamin D3 47 pg/mL; Vitamin D 1,25-Dihydroxy Total 47 pg/mL (18-72); Vitamin D,1,25-OH2, D2 <8 pg/mL
== END 2024-03-02 14:32 | disposition home or self-care (01) | DRG 596 ==
LOC: 4TH 16:30 → OBSVTOIN 02-28 13:22
PROVIDERS: ADMIT Internal Medicine; ATTEND Internal Medicine
DX: B02.9 Zoster without complications (principal); E87.1 Hypo-osmolality and hyponatremia; I10 Essential (primary) hypertension; K52.9 Noninfective gastroenteritis and colitis, unspecified; M19.90 Unspecified osteoarthritis, unspecified site; Z90.49 Acquired absence of other specified parts of digestive tract; Z90.710 Acquired absence of both cervix and uterus; Z79.899 Other long term (current) drug therapy
CPT/HCPCS: 36415; 71046; 72148; 74177; 80048; 80076; 81003; 82550; 82607; 82652; 83735; 84100; 84439; 84443; 85025; 85610; 85730; 87040; 87324; G0378; G0379; J0744; J1100; J1170; J1650; J2543; Q2035; Q9967